=== PATIENT | female | born 1985 | race Caucasian/White ===

== ENCOUNTER 2016-09-21 14:24 | Emergency (ER) | payer MEDICAID ==
[~2016-09-21] VITALS: Ht 149.9 cm; Wt 75.0 kg
[2016-09-21 14:28] VITALS: BP 144/83
== END 2016-09-21 21:35 | disposition left against medical advice (07) ==
LOC: ER 21:34
DX: R42 Dizziness and giddiness (principal); Z53.21 Procedure and treatment not carried out due to patient leaving prior to being seen by health care provider